=== PATIENT | male | born 1965 | race Caucasian/White ===

== ENCOUNTER 2017-08-26 14:08 | Day surgery (SDC) | payer OTHER ==
[2017-08-26] MEDS ORDERED: COCAINE 4% 4 ML TOP (17:31)
[2017-08-26] MEDS ORDERED: OXYMETAZOLINE 0.05% 15 ML NAS SPRAY NASAL (17:31)
[2017-08-26] MEDS ORDERED: LIDOCAINE 1%/EPI 30 ML INJ (17:31)
[2017-08-26] MEDS ORDERED: BACITRACIN/POLYMYXIN 28.35 GM OINT TOP (17:32)
[2017-08-26] MEDS ORDERED: ROCURONIUM 50 MG INJ (17:35)
[2017-08-26] MEDS ORDERED: FENTAnyl 50 MCG/ML VIAL (17:35)
[2017-08-26] MEDS ORDERED: PROPOFOL 20 ML (17:35)
[2017-08-26] MEDS ORDERED: CEFAZOLIN 1 GM INJ (17:35)
[2017-08-26] MEDS ORDERED: MIDAZOLAM 1 MG/ML 2 ML INJ (17:35)
[2017-08-26] MEDS ORDERED: SUGAMMADEX SODIUM 200 MG/2 ML VIAL IV (18:02)
[2017-08-26] MEDS ORDERED: DEXAMETHASONE 4 MG/ML 1 ML INJ (18:02)
[2017-08-26] MEDS ORDERED: ONDANSETRON 4 MG INJ (18:02)
[2017-08-26] MEDS ORDERED: METOCLOPRAMIDE 10 MG INJ (18:02)
[2017-08-26] MEDS ORDERED: KETOROLAC 30 MG INJ (18:02)
[2017-08-26] MEDS ORDERED: HYDROmorphONE (0.2 MG/ML) 10ML SYG IV ×2 (18:30)
[2017-08-26] MEDS ORDERED: FENTAnyl 50 MCG/ML VIAL IV ×3 (18:30)
[2017-08-26] MEDS ORDERED: METOCLOPRAMIDE 10 MG INJ IV (18:30)
[2017-08-26] MEDS ORDERED: ONDANSETRON 4 MG INJ IV (18:30)
[2017-08-26] MEDS ORDERED: EPHEDrine SULFATE 50 MG/5 ML SYG IV (18:30)
[2017-08-26] MEDS ORDERED: OXYCODONE/ACETAMINOPHEN (5/325) TAB PO ×2 (18:30)
[2017-08-26] MEDS ORDERED: ALBUTEROL 0.083% (NEB) 2.5 MG/3 ML AMP HHN (18:30)
[2017-08-26] MEDS ORDERED: IPRATROPIUM (NEB) 0.5 MG/2.5 ML AMP HHN (18:30)
[2017-08-26] MEDS ORDERED: DIPHENHYDRAMINE 50 MG INJ IV (18:30)
[2017-08-26] MEDS ORDERED: MEPERIDINE 25 MG INJ IV (18:30)
[2017-08-26] MEDS ORDERED: LABETALOL HCL 20MG INJ IV (18:30)
[2017-08-26] MEDS: HYDROmorphONE (0.2 MG/ML) 10ML SYG IV (18:34)
== END 2017-08-26 20:15 | disposition home or self-care (01) ==
LOC: SDS 14:08
DX: R22.1 Localized swelling, mass and lump, neck (principal); M54.2 Cervicalgia; Z88.0 Allergy status to penicillin
CPT/HCPCS: 31237; 88304